=== PATIENT | male | born 1985 | race Caucasian/White ===

== ENCOUNTER 2016-10-31 20:50 | Emergency (ER) | payer OTHER | END 2016-10-31 22:31 | disposition home or self-care (01) | LOC: ER1 20:50 | DX: S93.402A Sprain of unspecified ligament of left ankle, initial encounter (principal); Y92.009 Unspecified place in unspecified non-institutional (private) residence as the place of occurrence of the external cause; W01.0XXA Fall on same level from slipping, tripping and stumbling without subsequent striking against object, initial encounter; X50.1XXA Overexertion from prolonged static or awkward postures, initial encounter; E11.9 Type 2 diabetes mellitus without complications | CPT/HCPCS: 73590; 73610; 73630; 99283 ==